=== PATIENT | male | born 1960 | race Caucasian/White ===

== ENCOUNTER 2018-09-20 09:18 | Inpatient (IN) | payer MEDICAID ==
[2018-09-20 09:28] VITALS: RESP 20
[2018-09-20 09:30] VITALS: TEMP 94.7
[2018-09-20 09:32] VITALS: O2SAT 100
[2018-09-20 09:34] LABS: BASO # 0.1 K/uL (0.0-0.2); BASO % 0.7 % (0.0-2.0); EOS # 0.2 K/uL (0.0-0.7); EOS % 1.6 % (0.0-4.0); HEMOGLOBIN 8.8 g/dL (12.0-18.0); LYMPH # 7.5 K/uL (1.0-4.3); LYMPH % 55.6 % (20.0-40.0); MEAN CELL VOLUME 70.7 fL (80.0-94.0); MEAN CORPUSCULAR HEMOGLOBIN 19.7 pg (27.0-31.0); MEAN CORPUSCULAR HGB CONC 27.9 g/dL (33.0-37.0); MEAN PLATELET VOLUME 7.6 fL (7.2-11.7); MONO # 0.4 K/uL (0.0-0.8); MONO % 3.1 % (0.0-10.0); NEUT # 5.3 K/uL (1.8-7.0); NRBC % 0.2 % (0.0-2.0); RBC 4.47 Mil/uL (4.40-5.90); RED CELL DISTRIBUTION WIDTH 19.7 % (11.5-14.5); WHITE BLOOD COUNT 13.5 K/uL (4.8-10.8)
[2018-09-20] MEDS ORDERED: Heparin25000 units/250ml 1/2NS 25,000 UNITS/250 ML BAG IV PRN (09:34)
[2018-09-20 09:40] VITALS: BP 106/67; PULSE 89
[2018-09-20 09:44] LABS: PROTHROMBIN TIME 11.3 SECONDS (9.7-12.2)
[2018-09-20 09:45] LABS: ALB/GLOB RATIO 1.3 (1.0-2.1); ALBUMIN 3.2 g/dL (3.5-5.0); ALT/SGPT 493 U/L (21-72); AST/SGOT 506 U/L (17-59); BLOOD UREA NITROGEN 9 mg/dL (9-20); CALCIUM 8.8 mg/dl (8.6-10.4); GFR NON-AFRICAN AMERICAN > 60
--- NOTE | 2018-09-20 09:48 | C.PDOC ---
History Of Present Illness Patient LISBET from work, apparently arrived at work and collapsed, EMS was called and patient defibrillated by BLS using AED. Patient had full cardiac arrest En route, was intubated, epi x 7 and ROSC obtained. EKG done in the field showed STEMI in inferior leads. On ED arrival, patient lost pulseS again, CPR initiated , 1 epi given and ROSC obtained. Time Seen by Provider: 09/20/18 09:44 Chief Complaint (Nursing): Cardiac Arrest History Per: EMS Reason For Code Blue: Full Arrest Circumstances: Brought To ED By EMS Arrest Witnessed By: Family (, coworkers) Down-Time Before ACLS: Mins (approx 45min) Treatment Initiated Prior To MD Arrival: Yes: CPR, BVM Ventilations, Intubation, Defibrillation, IVF, IV Access (IO) Past Medical History Reviewed: Historical Data, Nursing Documentation, Vital Signs Vital Signs: Last Vital Signs Temp 94.7 F L 09/20/18 09:19 Pulse 89 09/20/18 09:39 Resp 20 09/20/18 09:39 BP 106/67 09/20/18 09:39 Pulse Ox 100 09/20/18 09:39 - Medical History Other PMH: "heart problem" - PRN nitro Family History: States: No Known Family Hx - Social History Hx Alcohol Use: No Hx Substance Use: No - Immunization History Hx Tetanus Toxoid Vaccination: Yes Hx Influenza Vaccination: Yes Hx Pneumococcal Vaccination: Yes Review Of Systems Review Of Systems: ROS cannot be obtained secondary to pt's inabilty to answer questions. Physical Exam - Physical Exam Appears: Other (unresponsive ) Skin: Warm, Dry Eye(s): bilateral: Other (fixed and dilated B/L ) Oral Mucosa: Moist, Other (ET tube in place, 22mm at lip) Cardiovascular: Rhythm Regular (bradycardic on arrival ) Respiratory: No Rales, No Rhonchi, No Wheezing, Other (assisted ventilations, equal breath sounds B/L ) Gastrointestinal/Abdominal: Normal Exam, Bowel Sounds, Soft, No Tenderness Extremity: No Pedal Edema ED Course And Treatment - Laboratory Results Result Diagrams: 09/20/18 09:27 09/20/18 09:27 ECG: Interpreted By Me, Viewed By Me (NSR 86 bpm, normal axis, ST elevations II, III, aVF with reciprocal changes I, aVL, V4-V6) ECG Interpretation: Abnormal O2 Sat by Pulse Oximetry: 100 (FiO2 100%) Pulse Ox Interpretation: Normal - Radiology CXR: Interpreted by Me, Viewed By Me (pulmonary vascular congestion B/L, OG tube coiled in esophagus) Progress Note: Code heart called on [facility] EKG arrival, and Dr. Rai spoken with and aware. Patient bradycardic on ED arrival, then lost pulse. CPR initiated and 1 epi given, (+) ROSC obtained. Dopamine drip started. IV heparin, OG Brilinta and IA ASA given. HR and BP stable- Dr. Hernández in ED and will take patient to cardiac lab analyst. (OG tube removed by me and reinserted, (+) ausculation of epigastric gurgle. Brilinta then given.) Disposition - Disposition Decision To Admit - Pt Status Changed To: Hospital Disposition Of: Inpatient - Admit Certification Admit to Inpatient:: After my assessment, the patient will require hospitalization for at least two midnights. This is because of the severity of symptoms shown, intensity of services needed, and/or the medical risk in this patient being treated as an outpatient. - InPatient: Physician Admission Certification:: SEE NOTES - . Bed Request Type: ICU Admitting Physician: Tony Hernández Patient Diagnosis: Cardiac arrest, STEMI (ST elevation myocardial infarction)
--- NOTE | 2018-09-20 10:12 | RAD ---
Date of service: 09/20/2018 PROCEDURE: CHEST RADIOGRAPH, 1 VIEW HISTORY: CHEST PAIN COMPARISON: None available. FINDINGS: Endotracheal tube terminates 1.5 cm proximal to the donald. LUNGS: There is dense consolidation with air bronchogram in both upper lobes and mid lungs. There is subsegmental atelectasis in the lower lobes. PLEURA: No pneumothorax or pleural effusion. CARDIOVASCULAR: The heart is normal in size. No aortic atherosclerotic calcifications present. OSSEOUS STRUCTURES: Within normal limits for the patient's age. VISUALIZED UPPER ABDOMEN: Normal. OTHER FINDINGS: None. IMPRESSION: Dense consolidation in both upper lobes and mid lungs most compatible with multifocal pneumonia although pulmonary edema is also a consideration. Clinical follow-up is advised. Endotracheal tube terminates 1.5 cm proximal to the donald.
[2018-09-20] MEDS ORDERED: Eptifibatide 20 mg/10mL Inj IVP ONE (10:21)
[2018-09-20] MEDS ORDERED: Phenylephrine 10 mg/ml Inj ONE (10:21)
[2018-09-20] MEDS ORDERED: Iodixanol 320 MG/ML 100 ML BOTTLE IV ONE ×2 (10:22→10:40)
[2018-09-20 10:41] VITALS: BMI 23.1
[2018-09-20] MEDS ORDERED: DOBUTamine 500mg/250ml D5W 500 MG/250 ML BAG IV PRN (11:45)
--- NOTE | 2018-09-20 12:22 | CP.PCM.PN ---
<Elizabeth oLco - Last Filed: 09/20/18 12:16> Subjective - Date & Time of Evaluation Date of Evaluation: 09/20/18 Time of Evaluation: 08:57 - Subjective Subjective: CODE HEART Code Heart called in ED fat 8:57 for STEMI. 58 yo male in route. Patient was at work when he complained of cheat pain and collapsed. EKG showed ST elevations in II, III, aVF with reciprocal changes in precordial leads. Patient was given ASA, 7 rounds of epi, and shocked 2 times in the field. Patient arrived intubated. EMS reported episodes of asystole, PEA, and wide complex tachycardia. Chest compressions were started in the ED and patient was given another dose of epi and ROSC was achieved. Patient given heparin loading dose, Brilinta, and started on heparin drip before being transported to labor relations consultant. Overall, patient was "down" for 45-60 minutes. Cardiac cath procedure done by Dr. Hernández who placed balloon pump. Patient started on pressors to maintain BP. Patient transferred to ICU post-cath. Approximately 1 hour later, patient went into cardiac arrest again. Code pankaj was called. Patient . Please refer to kaushal lira for further details. Objective - Vital Signs/Intake and Output Vital Signs (last 24 hours): Temp Pulse Resp BP Pulse Ox 94.7 F L 89 20 106/67 100 09/20/18 09:23 09/20/18 09:39 09/20/18 09:39 09/20/18 09:39 09/20/18 10:58 - Medications Medications: Current Medications Heparin Sodium/Sodium Chloride (Heparin 71605 Units/250ml 1/2 Normal Saline) 25,000 units in 250 mls @ 7.711 mls/hr IV .Q24H PRN; Protocol PRN Reason: PROTOCOL Last Admin: 09/20/18 09:34 Dose: 10 units/kg/hr, 7.711 mls/hr Dobutamine HCl/Dextrose (Dobutamine/Dextrose 5% 500mg/250ml) 500 mg in 250 mls @ 10.5 mls/hr IV .[id number] PRN; Protocol - Labs Labs: 09/20/18 09:27 09/20/18 09:27 PT 11.3 SECONDS (9.7-12.2) 09/20/18 09:27 INR 1.0 02/06/19 09:27 APTT 58 SECONDS (21-34) H 09/20/18 09:27 - Constitutional Appears: Other (unresponsive, intubated) - Head Exam Head Exam: ATRAUMATIC, NORMAL INSPECTION - ENT Exam Additional comments: ET tube, OG tube both with blood - Respiratory Exam Additional comments: intubated, bag valve - Cardiovascular Exam Cardiovascular Exam: absent: RRR - GI/Abdominal Exam GI & Abdominal Exam: Soft. absent: Distended - Extremities Exam Extremities Exam: Normal Inspection - Neurological Exam Neurological Exam: Altered (unresponsive) - Skin Skin Exam: Normal Color, Warm Assessment and Plan - Assessment and Plan (Free Text) Assessment: 58 yo male presented to ED with cardiac arrest/STEMI. Cardaic cath procedure performed. Patient went into cardiac arrest post-cath in ICU and . Plan: Cardiac arrest/STEMI- Code heart, cardiac cath - See ICU and procedure notes for details <Troy Polanco - Last Filed: 09/20/18 15:05> Objective - Vital Signs/Intake and Output Vital Signs (last 24 hours): Temp Pulse Resp BP Pulse Ox 94.7 F L 89 20 106/67 100 09/20/18 09:23 09/20/18 09:39 09/20/18 09:39 09/20/18 09:39 09/20/18 10:58 - Medications Medications: Current Medications Heparin Sodium/Sodium Chloride (Heparin 61030 Units/250ml 1/2 Normal Saline) 25,000 units in 250 mls @ 7.711 mls/hr IV .Q24H PRN; Protocol PRN Reason: PROTOCOL Last Admin: 09/20/18 09:34 Dose: 10 units/kg/hr, 7.711 mls/hr Dobutamine HCl/Dextrose (Dobutamine/Dextrose 5% 500mg/250ml) 500 mg in 250 mls @ 10.5 mls/hr IV .[id number] PRN; Protocol - Labs Labs: 09/20/18 09:27 09/20/18 09:27 PT 11.3 SECONDS (9.7-12.2) 09/20/18 09:27 INR 1.0 09/20/18 09:27 APTT 58 SECONDS (21-34) H 09/20/18 09:27 Attending/Attestation - Attestation I have personally seen and examined this patient.: Yes I have fully participated in the care of the patient.: Yes I have reviewed all pertinent clinical information, including history, physical exam and plan: Yes Notes (Text): 09/20/18 15:01 Medical attending: Patient was seen and examined by me. Agree with the above note by the resident Unfortunately the patient did later. As mentioned above he collasped in the field and required defibrillation as well as intubation by EMS and EKGs intially showed 2, 3, avF elevation with reciprocal iscemic changes in the lateral leads. The patient underwent cardiac catherization and unfortunately it showed muti- vessel disease. Because of the seriousness of the situation he required a ballon pump and later after he was in the ICU he coded. Family members were present and we discussed with them at length Troy Polanco
--- NOTE | 2018-09-20 12:38 | CP.PCM.PRO ---
Pronouncement of Note - Clinical Findings Physical Exam: No Response Verbal/Painful Stimuli, Absent Peripheral Puls es{Carotid & Femoral}, Absent Heart & Breath Sounds, Absence of Vital Signs - Pronouncement Time Time of Pronouncement of : 12:00 - Notifications Pronouncement Notifications: Family Notified, Atending Notified Internal Grinder Tender Notified: Yes - Autopsy Autopsy Requested: No - [place] [id number]
--- NOTE | 2018-09-20 12:57 | CP.PCM.CON ---
<Fei Vasquez S - Last Filed: 09/20/18 16:53> Meds Allergies/Adverse Reactions: Allergies Allergy/AdvReac Type Severity Reaction Status Date / Time No Known Allergies Allergy Unverified 09/20/18 09:21 - Medications Medications: Current Medications Heparin Sodium/Sodium Chloride (Heparin 35877 Units/250ml 1/2 Normal Saline) 25,000 units in 250 mls @ 7.711 mls/hr IV .Q24H PRN; Protocol PRN Reason: PROTOCOL Last Admin: 09/20/18 09:34 Dose: 10 units/kg/hr, 7.711 mls/hr Dobutamine HCl/Dextrose (Dobutamine/Dextrose 5% 500mg/250ml) 500 mg in 250 mls @ 10.5 mls/hr IV .[id number] PRN; Protocol Results - Vital Signs Recent Vital Signs: Last Vital Signs Temp 94.7 F L 09/20/18 09:23 Pulse 89 09/20/18 09:39 Resp 20 09/20/18 09:39 BP 106/67 09/20/18 09:39 Pulse Ox 100 09/20/18 10:58 - Labs Result Diagrams: 09/20/18 09:27 09/20/18 09:27 Labs: Laboratory Results - last 24 hr 09/20/18 09/20/18 09/20/18 09:27 09:27 09:27 WBC 13.5 H RBC 4.47 Hgb 8.8 L Hct 31.6 L MCV 70.7 L MCH 19.7 L MCHC 27.9 L RDW 19.7 H Plt Count 333 MPV 7.6 Neut % (Auto) 39.0 L Lymph % (Auto) 55.6 H [place] % (Auto) 3.1 Eos % (Auto) 1.6 Baso % (Auto) 0.7 Neut # (Auto) 5.3 Lymph # (Auto) 7.5 H [place] # (Auto) 0.4 Eos # (Auto) 0.2 Baso # (Auto) 0.1 PT 11.3 INR 1.0 APTT 58 H Sodium 136 Potassium 3.5 L Chloride 103 Carbon Dioxide 16 L Anion Gap 21 H BUN 9 Creatinine 1.1 Est GFR ( Amer) > 60 Est GFR (Non-Af Amer) > 60 POC Glucose (mg/dL) Random Glucose 321 H Calcium 8.8 Total Bilirubin 0.1 L AST 506 H ALT 493 H Alkaline Phosphatase 112 Troponin I 0.1090 Total Protein 5.6 L Albumin 3.2 L Globulin 2.4 Albumin/Globulin Ratio 1.3 Blood Type Antibody Screen 09/20/18 09/20/18 09:27 11:47 WBC RBC Hgb Hct MCV MCH MCHC RDW Plt Count MPV Neut % (Auto) Lymph % (Auto) [place] % (Auto) Eos % (Auto) Baso % (Auto) Neut # (Auto) Lymph # (Auto) [place] # (Auto) Eos # (Auto) Baso # (Auto) PT INR APTT Sodium Potassium Chloride Carbon Dioxide Anion Gap BUN Creatinine Est GFR ( Amer) Est GFR (Non-Af Amer) POC Glucose (mg/dL) 271 H Random Glucose Calcium Total Bilirubin AST ALT Alkaline Phosphatase Troponin I Total Protein Albumin Globulin Albumin/Globulin Ratio Blood Type A POSITIVE Antibody Screen Negative Attending/Attestation - Attestation I have personally seen and examined this patient.: Yes I have fully participated in the care of the patient.: Yes I have reviewed all pertinent clinical information: Yes Notes (Text): 09/20/18 16:54 Patient seen and examined Status post cardiac arrest and resuscitation admitted with ST elevation UT status post cardiac cath with triple-vessel disease On arrival to ICU patient went into V. fib and then asystole CPR started and full ACLS protocol followed without response Patient pronounced at 12 noon <Hill Corbett - Last Filed: 09/20/18 17:47> History of Present Illness - History of Present Illness History of Present Illness: ICU PGY-[address] Vasquez reason for consult: CODE HEART, s/p cath Patient is a 58 year old male with pmhx of prediabetes, was brought by ambulance after patient collapsed at work, previously complaining with acute chest pain, previously complaining of chest pain, given several rounds of epi, shocked three times and intubated in the field. Patient in the ED with asystole, PEA, wide complex tachycardia. ROSC achieved after epi, given heparin and brilinta and went to cardiac cath, ballon angio attempted with no success, placed balloon pump, patient transferred to ICU, on pressor, noted to be bradycardic, cardiac arrest again, Code blue called, patient observed to be on vfib, CPR with several rounds of epi and shocked multiple times, patient went to asystole, ACLS continued with no response. Time of pronouncement of - 12:00 Past Patient History - Infectious Disease Hx of Infectious Diseases: None - Past Social History Smoking Status: Never Smoked - CARDIAC Other/Comment: chest pain - PSYCHIATRIC Hx Substance Use: No - ANESTHESIA Hx Anesthesia: No Meds - Medications Medications: Current Medications Heparin Sodium/Sodium Chloride (Heparin 32420 Units/250ml 1/2 Normal Saline) 25,000 units in 250 mls @ 7.711 mls/hr IV .Q24H PRN; Protocol PRN Reason: PROTOCOL Last Admin: 09/20/18 09:34 Dose: 10 units/kg/hr, 7.711 mls/hr Dobutamine HCl/Dextrose (Dobutamine/Dextrose 5% 500mg/250ml) 500 mg in 250 mls @ 10.5 mls/hr IV .[id number] PRN; Protocol Physical Exam - Constitutional Appears: Toxic, In Acute Distress - Head Exam Head Exam: ATRAUMATIC, NORMOCEPHALIC - Eye Exam Eye Exam: absent: Normal appearance - ENT Exam Additional comments: intubated, bleeding observed tube and balloon mask - Neck Exam Neck exam: Positive for: Normal Inspection - Respiratory Exam Respiratory Exam: absent: Clear to Auscultation Bilateral, NORMAL BREATHING PATTERN - Cardiovascular Exam Cardiovascular Exam: absent: REGULAR RHYTHM - Neurological Exam Additional comments: not alert or oriented, not awake Results - Vital Signs Recent Vital Signs: Last Vital Signs Temp 94.7 F L 09/20/18 09:23 Pulse 89 09/20/18 09:39 Resp 20 09/20/18 09:39 BP 106/67 09/20/18 09:39 Pulse Ox 100 09/20/18 10:58 - Labs Result Diagrams: 09/20/18 09:27 09/20/18 09:27 Labs: Laboratory Results - last 24 hr 09/20/18 09/20/18 09/20/18 09:27 09:27 09:27 WBC 13.5 H RBC 4.47 Hgb 8.8 L Hct 31.6 L MCV 70.7 L MCH 19.7 L MCHC 27.9 L RDW 19.7 H Plt Count 333 MPV 7.6 Neut % (Auto) 39.0 L Lymph % (Auto) 55.6 H [place] % (Auto) 3.1 Eos % (Auto) 1.6 Baso % (Auto) 0.7 Neut # (Auto) 5.3 Lymph # (Auto) 7.5 H [place] # (Auto) 0.4 Eos # (Auto) 0.2 Baso # (Auto) 0.1 PT 11.3 INR 1.0 APTT 58 H Sodium 136 Potassium 3.5 L Chloride 103 Carbon Dioxide 16 L Anion Gap 21 H BUN 9 Creatinine 1.1 Est GFR ( Amer) > 60 Est GFR (Non-Af Amer) > 60 POC Glucose (mg/dL) Random Glucose 321 H Calcium 8.8 Total Bilirubin 0.1 L AST 506 H ALT 493 H Alkaline Phosphatase 112 Troponin I 0.1090 Total Protein 5.6 L Albumin 3.2 L Globulin 2.4 Albumin/Globulin Ratio 1.3 Blood Type Antibody Screen 09/20/18 09/20/18 09:27 11:47 WBC RBC Hgb Hct MCV MCH MCHC RDW Plt Count MPV Neut % (Auto) Lymph % (Auto) [place] % (Auto) Eos % (Auto) Baso % (Auto) Neut # (Auto) Lymph # (Auto) [place] # (Auto) Eos # (Auto) Baso # (Auto) PT INR APTT Sodium Potassium Chloride Carbon Dioxide Anion Gap BUN Creatinine Est GFR ( Amer) Est GFR (Non-Af Amer) POC Glucose (mg/dL) 271 H Random Glucose Calcium Total Bilirubin AST ALT Alkaline Phosphatase Troponin I Total Protein Albumin Globulin Albumin/Globulin Ratio Blood Type A POSITIVE Antibody Screen Negative Assessment & Plan - Date & Time Date: 09/20/18 Time: 11:30
--- NOTE | 2018-09-20 14:53 | CP.PCM.HP ---
<Hill Corbett - Last Filed: 09/20/18 17:48> History of Present Illness - History of Present Illness History of Present Illness: PGY-1 H&P note for Dr Troy Polanco hospitalist service cc: CODE HEART Patient is a 58 year old male with pmhx of prediabetes, was brought by ambulance after patient collapsed at work, previously complaining with acute chest pain, previously complaining of chest pain, given several rounds of epi, shocked three times and intubated in the field. Was noted that patient was "down" for about 45 minutes. Patient in the ED with asystole, PEA, wide complex tachycardia. ROSC achieved after epi, given heparin and brilinta and went to cardiac cath, ballon angio attempted with no success, placed balloon pump, patient transferred to ICU, on pressor, noted to be bradycardic, cardiac arrest again, Code blue called, patient observed to be on vfib, CPR with several rounds of epi and shocked multiple times, patient went to asystole, ACLS continued with no response. Time of pronouncement of - 12:00 Present on Admission - Present on Admission Any Indicators Present on Admission: No Past Patient History - Infectious Disease Hx of Infectious Diseases: None - Past Social History Smoking Status: Never Smoked - CARDIAC Other/Comment: chest pain - PSYCHIATRIC Hx Substance Use: No - ANESTHESIA Hx Anesthesia: No Meds Allergies/Adverse Reactions: Allergies Allergy/AdvReac Type Severity Reaction Status Date / Time No Known Allergies Allergy Unverified 09/20/18 09:21 Physical Exam - Constitutional Appears: Toxic, In Acute Distress - Head Exam Head Exam: ATRAUMATIC, NORMAL INSPECTION, NORMOCEPHALIC - ENT Exam Additional comments: intubated, blood noted on ETT and bag mask - Respiratory Exam Respiratory Exam: absent: NORMAL BREATHING PATTERN - Cardiovascular Exam Cardiovascular Exam: absent: REGULAR RHYTHM - Extremities Exam Extremities exam: Positive for: normal inspection - Neurological Exam Additional comments: not awake, alert or oriented Results - Vital Signs Recent Vital Signs: Last Vital Signs Temp 94.7 F L 09/20/18 09:23 Pulse 89 09/20/18 09:39 Resp 20 09/20/18 09:39 BP 106/67 09/20/18 09:39 Pulse Ox 100 09/20/18 10:58 - Labs Result Diagrams: 09/20/18 09:27 09/20/18 09:27 Labs: Laboratory Results - last 24 hr 09/20/18 09/20/18 09/20/18 09:27 09:27 09:27 WBC 13.5 H RBC 4.47 Hgb 8.8 L Hct 31.6 L MCV 70.7 L MCH 19.7 L MCHC 27.9 L RDW 19.7 H Plt Count 333 MPV 7.6 Neut % (Auto) 39.0 L Lymph % (Auto) 55.6 H [place] % (Auto) 3.1 Eos % (Auto) 1.6 Baso % (Auto) 0.7 Neut # (Auto) 5.3 Lymph # (Auto) 7.5 H [place] # (Auto) 0.4 Eos # (Auto) 0.2 Baso # (Auto) 0.1 PT 11.3 INR 1.0 APTT 58 H Sodium 136 Potassium 3.5 L Chloride 103 Carbon Dioxide 16 L Anion Gap 21 H BUN 9 Creatinine 1.1 Est GFR ( Amer) > 60 Est GFR (Non-Af Amer) > 60 POC Glucose (mg/dL) Random Glucose 321 H Calcium 8.8 Total Bilirubin 0.1 L AST 506 H ALT 493 H Alkaline Phosphatase 112 Troponin I 0.1090 Total Protein 5.6 L Albumin 3.2 L Globulin 2.4 Albumin/Globulin Ratio 1.3 Blood Type Antibody Screen 09/20/18 09/20/18 09:27 11:47 WBC RBC Hgb Hct MCV MCH MCHC RDW Plt Count MPV Neut % (Auto) Lymph % (Auto) [place] % (Auto) Eos % (Auto) Baso % (Auto) Neut # (Auto) Lymph # (Auto) [place] # (Auto) Eos # (Auto) Baso # (Auto) PT INR APTT Sodium Potassium Chloride Carbon Dioxide Anion Gap BUN Creatinine Est GFR ( Amer) Est GFR (Non-Af Amer) POC Glucose (mg/dL) 271 H Random Glucose Calcium Total Bilirubin AST ALT Alkaline Phosphatase Troponin I Total Protein Albumin Globulin Albumin/Globulin Ratio Blood Type A POSITIVE Antibody Screen Negative Assessment & Plan - Date & Time Date: 09/20/18 Time: 11:30 <Troy Polanco H - Last Filed: 09/20/18 18:18> Results - Vital Signs Recent Vital Signs: Last Vital Signs Temp 94.7 F L 09/20/18 09:23 Pulse 89 09/20/18 09:39 Resp 20 09/20/18 09:39 BP 106/67 09/20/18 09:39 Pulse Ox 100 09/20/18 10:58 - Labs Result Diagrams: 09/20/18 09:27 09/20/18 09:27 Labs: Laboratory Results - last 24 hr 09/20/18 09/20/18 09/20/18 09:27 09:27 09:27 WBC 13.5 H RBC 4.47 Hgb 8.8 L Hct 31.6 L MCV 70.7 L MCH 19.7 L MCHC 27.9 L RDW 19.7 H Plt Count 333 MPV 7.6 Neut % (Auto) 39.0 L Lymph % (Auto) 55.6 H [place] % (Auto) 3.1 Eos % (Auto) 1.6 Baso % (Auto) 0.7 Neut # (Auto) 5.3 Lymph # (Auto) 7.5 H [place] # (Auto) 0.4 Eos # (Auto) 0.2 Baso # (Auto) 0.1 PT 11.3 INR 1.0 APTT 58 H Sodium 136 Potassium 3.5 L Chloride 103 Carbon Dioxide 16 L Anion Gap 21 H BUN 9 Creatinine 1.1 Est GFR ( Amer) > 60 Est GFR (Non-Af Amer) > 60 POC Glucose (mg/dL) Random Glucose 321 H Calcium 8.8 Total Bilirubin 0.1 L AST 506 H ALT 493 H Alkaline Phosphatase 112 Troponin I 0.1090 Total Protein 5.6 L Albumin 3.2 L Globulin 2.4 Albumin/Globulin Ratio 1.3 Blood Type Antibody Screen 09/20/18 09/20/18 09:27 11:47 WBC RBC Hgb Hct MCV MCH MCHC RDW Plt Count MPV Neut % (Auto) Lymph % (Auto) [place] % (Auto) Eos % (Auto) Baso % (Auto) Neut # (Auto) Lymph # (Auto) [place] # (Auto) Eos # (Auto) Baso # (Auto) PT INR APTT Sodium Potassium Chloride Carbon Dioxide Anion Gap BUN Creatinine Est GFR ( Amer) Est GFR (Non-Af Amer) POC Glucose (mg/dL) 271 H Random Glucose Calcium Total Bilirubin AST ALT Alkaline Phosphatase Troponin I Total Protein Albumin Globulin Albumin/Globulin Ratio Blood Type A POSITIVE Antibody Screen Negative Attending/Attestation - Attestation I have personally seen and examined this patient.: Yes I have fully participated in the care of the patient.: Yes I have reviewed all pertinent clinical information: Yes Notes (Text): 09/20/18 18:10 Medical attending: Patient was CODE HEART. I was present in the ER when he was brought in and ultimately brought to the mason tender restoration labor. As mentioned previously he had multi-vessel disease and a ballon pump due to the seriousness of the patient's condition. Unfortunately the patient later in the ICU had asystole and ultimately . Family members were present and were aware, I offered them my condolences Troy Polanco
--- NOTE | 2018-09-20 14:53 | CP.PCM.DIS ---
<Hill Corbett - Last Filed: 09/20/18 17:55> Provider - Provider Date of Admission: 09/20/18 09:44 Attending physician: Tony Hernández MD Time Spent in preparation of Discharge (in minutes): 45 Diagnosis - Discharge Diagnosis (1) Cardiac arrest Status: Acute (2) STEMI (ST elevation myocardial infarction) Status: Acute Hospital Course - Lab Results Lab Results: Most Recent Lab Values WBC 13.5 K/uL (4.8-10.8) H 09/20/18 09:27 RBC 4.47 Mil/uL (4.40-5.90) 09/20/18 09:27 Hgb 8.8 g/dL (12.0-18.0) L 09/20/18 09: Hct 31.6 % (35.0-51.0) L 09/20/18 09:27 MCV 70.7 fL (80.0-94.0) L 09/20/18 09:27 MCH 19.7 pg (27.0-31.0) L 09/20/18 09: MCHC 27.9 g/dL (33.0-37.0) L 09/20/18 09:27 RDW 19.7 % (11.5-14.5) H 09/20/18 09:27 Plt Count 333 K/uL (130-400) 09/20/18 09:27 MPV 7.6 fL (7.2-11.7) 09/20/18 09:27 Neut % (Auto) 39.0 % (50.0-75.0) L 09/20/18 09:27 Lymph % (Auto) 55.6 % (20.0-40.0) H 09/20/18 09:27 [place] % (Auto) 3.1 % (0.0-10.0) 09/20/18 09:27 Eos % (Auto) 1.6 % (0.0-4.0) 09/20/18 09: Baso % (Auto) 0.7 % (0.0-2.0) 09/20/18 09:27 Neut # (Auto) 5.3 K/uL (1.8-7.0) 09/20/18 09:27 Lymph # (Auto) 7.5 K/uL (1.0-4.3) H 09/20/18 09:27 [place] # (Auto) 0.4 K/uL (0.0-0.8) 09/20/18 09:27 Eos # (Auto) 0.2 K/uL (0.0-0.7) 09/20/18 09:27 Baso # (Auto) 0.1 K/uL (0.0-0.2) 09/20/18 09: PT 11.3 SECONDS (9.7-12.2) 09/20/18 09:27 INR 1.0 09/20/18 09: APTT 58 SECONDS (21-34) H 09/20/18 09:27 Sodium 136 mmol/L (132-148) 09/20/18 09: Potassium 3.5 mmol/L (3.6-5.2) L 09/20/18 09: Chloride 103 mmol/L (98-107) 09/20/18 09: Carbon Dioxide 16 mmol/L (22-30) L 09/20/18 09:27 Anion Gap 21 (10-20) H 09/20/18 09:27 BUN 9 mg/dL (9-20) 09/20/18 09: Creatinine 1.1 mg/dL (0.8-1.5) 09/20/18 09:27 Est GFR ( Amer) > 60 09/20/18 09:27 Est GFR (Non-Af Amer) > 60 09/20/18 09:27 POC Glucose (mg/dL) 271 mg/dL (65-110) H 09/20/18 11:47 Random Glucose 321 mg/dL (75-110) H 09/20/18 09:27 Calcium 8.8 mg/dl (8.6-10.4) 09/20/18 09:27 Total Bilirubin 0.1 mg/dL (0.2-1.3) L 09/20/18 09:27 AST 506 U/L (17-59) H 09/20/18 09:27 ALT 493 U/L (21-72) H 09/20/18 09:27 Alkaline Phosphatase 112 U/L (38-126) 09/20/18 09:27 Troponin I 0.1090 ng/mL (0.00-0.120) 09/20/18 09:27 Total Protein 5.6 g/dL (6.3-8.3) L 09/20/18 09:27 Albumin 3.2 g/dL (3.5-5.0) L 09/20/18 09:27 Globulin 2.4 gm/dL (2.2-3.9) 09/20/18 09:27 Albumin/Globulin Ratio 1.3 (1.0-2.1) 09/20/18 09:27 Blood Type A POSITIVE 09/20/18 09: Antibody Screen Negative 09/20/18 09:27 - Hospital Course Hospital Course: Patient is a 58 year old male with pmhx of prediabetes, was brought by ambulance after patient collapsed at work, previously complaining with acute chest pain, previously complaining of chest pain, given several rounds of epi, shocked three times and intubated in the field. Patient in the ED with asystole, PEA, wide complex tachycardia. ROSC achieved after epi, given heparin and brilinta and went to cardiac cath, ballon angio attempted with no success, placed balloon pump Patient transferred to ICU, on pressor, noted to be bradycardic, cardiac arrest again in unit, Code blue called, patient observed to be on vfib, CPR with several rounds of epi and shocked multiple times, patient went to asystole, ACLS continued with no response. Time of pronouncement of 12:00. [facility] # [id number], family notified, attending notified. - Date & Time of H&P Date of H&P: 09/20/18 Time of H&P: 12:00 Discharge Exam - Head Exam Head Exam: ATRAUMATIC, NORMAL INSPECTION - Respiratory Exam Respiratory Exam: absent: NORMAL BREATHING PATTERN - Cardiovascular Exam Cardiovascular Exam: absent: REGULAR RHYTHM - Neurological Exam Additional comments: not awake, alert or oriented, intubated Discharge Plan - Follow Up Plan Condition: Disposition: HOME/ ROUTINE <Troy Polanco H - Last Filed: 09/20/18 18:19> Provider - Provider Date of Admission: 09/20/18 09:44 Attending physician: Tony Hernández MD Hospital Course - Lab Results Lab Results: Most Recent Lab Values WBC 13.5 K/uL (4.8-10.8) H 09/20/18 09:27 RBC 4.47 Mil/uL (4.40-5.90) 09/20/18: Hgb 8.8 g/dL (12.0-18.0) L 09/20/18: Hct 31.6 % (35.0-51.0) L 09/20/18: MCV 70.7 fL (80.0-94.0) L 09/20/18: MCH 19.7 pg (27.0-31.0) L 09/20/18: MCHC 27.9 g/dL (33.0-37.0) L 09/20/18: RDW 19.7 % (11.5-14.5) H 09/20/18: Plt Count 333 K/uL (130-400) 09/20/18: MPV 7.6 fL (7.2-11.7) 09/20/18: Neut % (Auto) 39.0 % (50.0-75.0) L 09/20/18: Lymph % (Auto) 55.6 % (20.0-40.0) H 09/20/18: [place] % (Auto) 3.1 % (0.0-10.0) 09/20/18: Eos % (Auto) 1.6 % (0.0-4.0) 09/20/18 Baso % (Auto) 0.7 % (0.0-2.0) 09/20/18: Neut # (Auto) 5.3 K/uL (1.8-7.0) 09/20/18: Lymph # (Auto) 7.5 K/uL (1.0-4.3) H 09/20/18: [place] # (Auto) 0.4 K/uL (0.0-0.8) 09/20/18: Eos # (Auto) 0.2 K/uL (0.0-0.7) 09/20/18: Baso # (Auto) 0.1 K/uL (0.0-0.2) 09/20/18: PT 11.3 SECONDS (9.7-12.2) 02/06/19 09:27 INR 1.0 09/20/18 09:27 APTT 58 SECONDS (21-34) H 09/20/18 09:27 Sodium 136 mmol/L (132-148) 09/20/18 09:27 Potassium 3.5 mmol/L (3.6-5.2) L 09/20/18 09:27 Chloride 103 mmol/L (98-107) 09/20/18 09:27 Carbon Dioxide 16 mmol/L (22-30) L 09/20/18 09:27 Anion Gap 21 (10-20) H 09/20/18 09:27 BUN 9 mg/dL (9-20) 09/20/18 09:27 Creatinine 1.1 mg/dL (0.8-1.5) 09/20/18 09:27 Est GFR ( Amer) > 60 09/20/18 09:27 Est GFR (Non-Af Amer) > 60 09/20/18 09:27 POC Glucose (mg/dL) 271 mg/dL (65-110) H 09/20/18 11:47 Random Glucose 321 mg/dL (75-110) H 09/20/18 09:27 Calcium 8.8 mg/dl (8.6-10.4) 09/20/18 09:27 Total Bilirubin 0.1 mg/dL (0.2-1.3) L 09/20/18 09:27 AST 506 U/L (17-59) H 09/20/18 09:27 ALT 493 U/L (21-72) H 09/20/18 09:27 Alkaline Phosphatase 112 U/L (38-126) 09/20/18 09:27 Troponin I 0.1090 ng/mL (0.00-0.120) 09/20/18 09:27 Total Protein 5.6 g/dL (6.3-8.3) L 09/20/18 09:27 Albumin 3.2 g/dL (3.5-5.0) L 09/20/18 09:27 Globulin 2.4 gm/dL (2.2-3.9) 09/20/18 09:27 Albumin/Globulin Ratio 1.3 (1.0-2.1) 09/20/18 09:27 Blood Type A POSITIVE 09/20/18 09:27 Antibody Screen Negative 09/20/18 09:27 Attending/Attestation - Attestation I have personally seen and examined this patient.: Yes I have fully participated in the care of the patient.: Yes I have reviewed all pertinent clinical information, including history, physical exam and plan: Yes Notes (Text): 09/20/18 18:19 Medical attending: Patient was CODE HEART. I was present in the ER when he was brought in and ultimately brought to the manager lab. As mentioned previously he had multi-vessel disease and a ballon pump due to the seriousness of the patient's condition. Unfortunately the patient later in the ICU had asystole and ultimately . Family members were present and were aware, I offered them my condolences Troy Polanco
--- NOTE | 2018-09-20 18:37 | CP.PCM.CON ---
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% MEDICAL NURSE of RCA (100% mid) L Cx/OM1: 99% LAD: 99% EKG has shown ST elevations in inferior leads RCA has collaterals from LCx L Cx intervention performed with Balloon angioplasty Questionable neurological recovery If patient recovers neurologically will be a candidate for CABG Very poor progonsis given overall situation Not a candidate for CABG at this time Recommend Code Freeze and supportive care D/W the family and the Son (Kristian) who is our medical student Past Patient History - Infectious Disease Hx of Infectious Diseases: None - Past Social History Smoking Status: Never Smoked - CARDIAC Other/Comment: chest pain - PSYCHIATRIC Hx Substance Use: No - ANESTHESIA Hx Anesthesia: No Meds Allergies/Adverse Reactions: Allergies Allergy/AdvReac Type Severity Reaction Status Date / Time No Known Allergies Allergy Unverified 09/20/18 09:21 - Medications Medications: Current Medications Heparin Sodium/Sodium Chloride (Heparin 06423 Units/250ml 1/2 Normal Saline) 25,000 units in 250 mls @ 7.711 mls/hr IV .Q24H PRN; Protocol PRN Reason: PROTOCOL Last Admin: 09/20/18 09:34 Dose: 10 units/kg/hr, 7.711 mls/hr Dobutamine HCl/Dextrose (Dobutamine/Dextrose 5% 500mg/250ml) 500 mg in 250 mls @ 10.5 mls/hr IV .[id number] PRN; Protocol Results - Vital Signs Recent Vital Signs: Last Vital Signs Temp 94.7 F L 09/20/18 09:23 Pulse 89 09/20/18 09:39 Resp 20 09/20/18 09:39 BP 106/67 09/20/18 09:39 Pulse Ox 100 09/20/18 10:58 - Labs Result Diagrams: 09/20/18 09:27 02/06/19 09:27 Labs: Laboratory Results - last 24 hr 09/20/18 09/20/18 09/20/18 09:27 09:27 09:27 WBC 13.5 H RBC 4.47 Hgb 8.8 L Hct 31.6 L MCV 70.7 L MCH 19.7 L MCHC 27.9 L RDW 19.7 H Plt Count 333 MPV 7.6 Neut % (Auto) 39.0 L Lymph % (Auto) 55.6 H [place] % (Auto) 3.1 Eos % (Auto) 1.6 Baso % (Auto) 0.7 Neut # (Auto) 5.3 Lymph # (Auto) 7.5 H [place] # (Auto) 0.4 Eos # (Auto) 0.2 Baso # (Auto) 0.1 PT 11.3 INR 1.0 APTT 58 H Sodium 136 Potassium 3.5 L Chloride 103 Carbon Dioxide 16 L Anion Gap 21 H BUN 9 Creatinine 1.1 Est GFR ( Amer) > 60 Est GFR (Non-Af Amer) > 60 POC Glucose (mg/dL) Random Glucose 321 H Calcium 8.8 Total Bilirubin 0.1 L AST 506 H ALT 493 H Alkaline Phosphatase 112 Troponin I 0.1090 Total Protein 5.6 L Albumin 3.2 L Globulin 2.4 Albumin/Globulin Ratio 1.3 Blood Type Antibody Screen 09/20/18 09/20/18 09:27 11:47 WBC RBC Hgb Hct MCV MCH MCHC RDW Plt Count MPV Neut % (Auto) Lymph % (Auto) [place] % (Auto) Eos % (Auto) Baso % (Auto) Neut # (Auto) Lymph # (Auto) [place] # (Auto) Eos # (Auto) Baso # (Auto) PT INR APTT Sodium Potassium Chloride Carbon Dioxide Anion Gap BUN Creatinine Est GFR ( Amer) Est GFR (Non-Af Amer) POC Glucose (mg/dL) 271 H Random Glucose Calcium Total Bilirubin AST ALT Alkaline Phosphatase Troponin I Total Protein Albumin Globulin Albumin/Globulin Ratio Blood Type A POSITIVE Antibody Screen Negative
--- NOTE | 2018-09-21 12:29 | CARD ---
APPROVED REPORT Date of service: 09/20/2018 EKG Measurement Heart [id number] <Conclusion> Normal sinus rhythm Rightward axis Nonspecific intraventricular block Inferior infarct, possibly acute ACUTE AR / STEMI Consider right ventricular involvement in acute inferior infarct Abnormal ECG
--- NOTE | 2018-09-25 03:55 | CARDCATH ---
PROCEDURE DATE: 09/20/2018 PROCEDURES: 1. Left heart catheterization. 2. Coronary angiogram. 3. Intraaortic balloon pump placement. 4. Left circumflex balloon angioplasty. CLINICAL INDICATIONS: 1. Massive cardiac arrest. 2. Inferolateral ST-elevation myocardial infarction. 3. Cardiogenic shock and hypotension. 4. Diabetes. REFERRING PHYSICIAN: Rob Styles DO PERFORMING PHYSICIAN: Tony Hernández MD BRIEF CLINICAL HISTORY: Alirio Mercer is a 58-year-old gentleman with recent diagnosis of diabetes. The patient had a massive cardiac arrest at home. The patient was in asystole, agonal , and ventricular fibrillation for long time. The patient was shocked twice in the field. The patient's downtime was 45-60 minutes. Subsequently, the patient was rushed to [facility] Emergency Room. In the ER, the patient achieved , however, the patient was requiring pressors to maintain the blood pressure. The patient was intubated in the field. The EKG in the ER has revealed inferolateral ST-elevation myocardial infarction. The patient was loaded with aspirin, Brilinta, and IV heparin was started. At that point, the patient was unresponsive to verbal as well as painful stimuli. The patient was in coma period, and downtime was significantly high. The chance of recovery of the patient was very questionable. However, it was decided to make an attempt to bring the patient to forestry farm laborer, hoping that patient would recover. DESCRIPTION OF PROCEDURE: After informed consent from the family, the patient was prepped and draped in the usual sterile fashion. The patient did not require lidocaine as the patient is not responding to pain. No lidocaine was given. A 6-Frisian sheath was introduced into right common femoral artery. Using the usual diagnostic catheter, diagnostic coronary angiogram was performed. The patient has a patent left main coronary artery. However, the patient has a diffuse LAD disease. The patient has a [id number] LAD, has 80-85% stenosis. Left circumflex is codominant. Left circumflex has a 99% calcific stenosis. Large obtuse marginal branch artery has also 99% stenosis. Right coronary artery is totally occluded in the mid region. However, based on the appearance, it looks like a chronic total occlusion. There are left to right collaterals visible. The patient's LV ejection fraction is 15-20%. Severely dilated heart. EDP was 32. There was no gradient across the aortic valve. The patient was unstable. We were loosing the blood pressure. Intraaortic balloon pump was placed immediately. The patient was now requiring three pressors. The patient is started on dopamine, Levophed, and Casey-Synephrine. We decided to attempt intervention. Right coronary artery intervention is unsuccessful. Right coronary artery appears to be chronic total occlusion. Decided to intervene left circumflex coronary artery. Which appears to be the culprit artery. This left circumflex has a severely calcific disease. Left main coronary artery was engaged using XB 3.5 6-Frisian guiding catheter. Left circumflex and obtuse marginal arteries were threaded using Whisper wire. The midcircumflex and proximal OM 99% stenotic calcific lesions were predilated using 2 x 2.5 compliant balloons. Good flow was accomplished to the left circumflex coronary artery system. It is decided to bring the patient to ICU and follow the hypothermia protocol. The patient was supported on the balloon pump. However, the patient was requiring three pressors due to cardiogenic shock. Then, the patient was transferred to intensive care unit. Hoping the patient recovers. The plan was to refer the patient for coronary artery bypass grafting. Tony Hernández MD
== END 2018-09-20 12:00 | DRG 110 ==
LOC: C.ER 09:18 → C.9I 09:44
PROVIDERS: ADMIT Internal Medicine Cardiovascular Disease; ATTEND Internal Medicine Cardiovascular Disease
PROC: 5A02210 Assistance with Cardiac Output using Balloon Pump, Continuous (ICD-10-PCS; principal; 2018-09-20)
PROC: 5A1935Z Respiratory Ventilation, Less than 24 Consecutive Hours (ICD-10-PCS; 2018-09-20)
PROC: 4A023N7 Measurement of Cardiac Sampling and Pressure, Left Heart, Percutaneous Approach (ICD-10-PCS; 2018-09-20)
PROC: B2151ZZ Fluoroscopy of Left Heart using Low Osmolar Contrast (ICD-10-PCS; 2018-09-20)
PROC: B2111ZZ Fluoroscopy of Multiple Coronary Arteries using Low Osmolar Contrast (ICD-10-PCS; 2018-09-20)
DX: I21.19 ST elevation (STEMI) myocardial infarction involving other coronary artery of inferior wall (principal); I42.0 Dilated cardiomyopathy; I49.01 Ventricular fibrillation; R57.0 Cardiogenic shock; I46.2 Cardiac arrest due to underlying cardiac condition; I25.10 Atherosclerotic heart disease of native coronary artery without angina pectoris; I25.5 Ischemic cardiomyopathy; R73.03 Prediabetes